=== PATIENT | male | born 1935 | race Hispanic/Latino ===

== ENCOUNTER 2017-05-24 09:57 | Emergency (ER) | payer MEDICARE ==
[~2017-05-24 09:57] MED LIST: BETA1TAB20 PO; BIOT25008 PO; LATA2.5D2 OP; METH2.5T6 PO; OMEG1CAP6 PO; THYR15TA PO
[2017-05-24 11:13] LABS: APPEARANCE,URINE Clear (CLEAR); BILIRUBIN,URINE Negative (NEGATIVE); COLOR,URINE Yellow (YELLOW); GLUCOSE, URINE (UA) Negative (NEGATIVE); KETONES,URINE Negative (NEGATIVE); LEUKOCYTE ESTERASE ,URINE Negative (NEGATIVE); NITRATE,URINE Negative (NEGATIVE); OCCULT BLOOD,URINE Negative (NEGATIVE); PROTEIN,URINE Negative (NEGATIVE); UROBILINOGEN,URINE 0.2 mg/dL (0.2-1.0)
[2017-05-24 11:20] LABS: BASOPHILS % (AUTO) 0.3 % (0.0-5.0); EOSINOPHILS % (AUTO) 0.1 % (0.0-8.0); HEMATOCRIT 38.3 % (42-54); LYMPHOCYTES % (AUTO) 8.1 % (21.0-51.0); MEAN CORPUSCULAR HEMOGLOBIN 29.1 pg (27.0-33.0); MEAN CORPUSCULAR HGB CONC 34.8 g/dL (32.0-36.0); MEAN CORPUSCULAR VOLUME 83.6 fL (79-99); MONOCYTES % (AUTO) 4.7 % (3.0-13.0); NEUTROPHILS % (AUTO) 86.8 % (40.0-77.0); NUCLEATED RED BLOOD CELLS 0.2 % (0.0-0.19); PLATELET COUNT (AUTO) 54 K/uL (130-400); RED BLOOD CELL COUNT(AUTO) 4.58 MIL/uL (4.50-6.20); RED CELL DISTRIBUTION WIDTH 16.4 % (11.0-15.5); WHITE BLOOD COUNT (AUTO) 3.2 K/uL (4.8-10.8)
[2017-05-24] MEDS ORDERED: SODIUM CHLORIDE 0.9% 1000ML 1,000 ML IV ONE (11:22)
[2017-05-24] MEDS ORDERED: ONDANSETRON HCL MDV 20ML 2 MG/ML VIAL ONE (11:23)
[2017-05-24 11:27] LABS: POTASSIUM 4.2 mmol/L (3.5-5.1)
[2017-05-24 11:33] LABS: ALBUMIN 3.4 g/dL (3.5-5.0); BILIRUBIN,DIRECT 0.2 mg/dL (0.0-0.3); BILIRUBIN,TOTAL 0.9 mg/dL (0.2-1.0); TOTAL PROTEIN, SERUM 6.4 g/dL (6.0-8.3)
[2017-05-24 11:49] LABS: INR 1.11 (0.85-1.15); PARTIAL THROMBOPLASTIN TIME 28.5 SEC (26.3-35.5); PROTHROMBIN TIME 11.6 SEC (9.6-11.6)
[2017-05-24 11:50] LABS: PLATELET MORPHOLOGY COMMENT DECREASED
== END 2017-05-24 12:50 | disposition home or self-care (01) ==
LOC: EDH 09:57
DX: K59.00 Constipation, unspecified (principal); R63.0 Anorexia; R79.1 Abnormal coagulation profile; Z85.118 Personal history of other malignant neoplasm of bronchus and lung; Z85.46 Personal history of malignant neoplasm of prostate; Z87.891 Personal history of nicotine dependence
CPT/HCPCS: 36415; 71045; 74176; 80048; 80076; 81003; 83690; 85025; 85610; 85730; 93005; 96360; 99285; J7030

== ENCOUNTER 2018-01-19 08:55 | Inpatient (IN) | payer MEDICARE ==
[~2018-01-19] VITALS: Ht 172.7 cm; Wt 71.0 kg
[2018-01-19 09:47] LABS: MONOCYTES % (AUTO) 12.8 % (3.0-13.0); NEUTROPHILS % (AUTO) 55.2 % (40.0-77.0)
[2018-01-19 09:55] LABS: CREATININE 1.2 mg/dL (0.5-1.5); POTASSIUM 3.8 mmol/L (3.5-5.1)
[2018-01-19 09:58] LABS: BASOPHILS % (AUTO) 0.2 % (0.0-5.0); HEMATOCRIT 30.5 % (42-54); LYMPHOCYTES % (AUTO) 31.8 % (21.0-51.0); MEAN CORPUSCULAR HEMOGLOBIN 29.4 pg (27.0-33.0); MEAN CORPUSCULAR HGB CONC 34.1 g/dL (32.0-36.0); MEAN CORPUSCULAR VOLUME 86.1 fL (79-99); NUCLEATED RED BLOOD CELLS 0.1 % (0.0-0.19); PLATELET COUNT (AUTO) 70 K/uL (130-400); RED BLOOD CELL COUNT(AUTO) 3.54 MIL/uL (4.50-6.20); RED CELL DISTRIBUTION WIDTH 21.1 % (11.0-15.5)
[2018-01-19 10:00] LABS: ALBUMIN 2.9 g/dL (3.5-5.0); BILIRUBIN,TOTAL 0.8 mg/dL (0.2-1.0); TOTAL PROTEIN, SERUM 5.4 g/dL (6.0-8.3); WHITE BLOOD COUNT (AUTO) 0.5 K/uL (4.8-10.8)
[2018-01-19 10:01] LABS: INR 1.11 (0.85-1.15); PARTIAL THROMBOPLASTIN TIME 33.8 SEC (26.3-35.5); PROTHROMBIN TIME 11.6 SEC (9.6-11.6)
[2018-01-19] MEDS ORDERED: MEROPENEM 1 GM VIAL ONE (10:16)
[2018-01-19] MEDS ORDERED: ACETAMINOPHEN 325 MG TAB ONE (10:16)
[2018-01-19 10:17] LABS: APPEARANCE,URINE Cloudy (CLEAR); BILIRUBIN,URINE Small (NEGATIVE); COLOR,URINE Dark Yellow (YELLOW); GLUCOSE, URINE (UA) Negative (NEGATIVE); KETONES,URINE Trace mg/dL (NEGATIVE); LEUKOCYTE ESTERASE ,URINE Trace (NEGATIVE); NITRATE,URINE Negative (NEGATIVE); OCCULT BLOOD,URINE Negative (NEGATIVE); PROTEIN,URINE POS 1+ (NEGATIVE)
[2018-01-19] MEDS ORDERED: SODIUM CHLORIDE 0.9% 50 ML IV ONE (10:17)
[2018-01-19 10:26] LABS: B-TYPE NATRIURETIC PEPTIDE 162 pg/mL (0-100)
[2018-01-19] MEDS ORDERED: VANCOMYCIN 1GM+NS 250ML 250 ML IV SCH (10:30)
[2018-01-19] MEDS ORDERED: SODIUM CHLORIDE 0.9% 1000ML 1,000 ML IV ONE (10:39)
[2018-01-19 10:51] LABS: BACTERIA,URINE Rare /HPF (None Seen); RBC,URINE None Seen /HPF (0-1); SQUAMOUS EPITHELIAL CELL,UR Rare /HPF (0-2); WBC,URINE 0-1 /HPF (0-1)
[2018-01-19] MEDS ORDERED: IPRATROPIUM/ALBUTEROL SULFATE 3 ML SOLUTION IH ONE (10:54)
[2018-01-19 11:11] LABS: BAND NEUTROPHILS % (MANUAL) 3 % (0-2); LYMPHOCYTES % (MANUAL) 29 % (22-44); MAN.DIFF COMMENT-IMPRESSION MANUAL DIFFERENTIAL; MONOCYTES % (MANUAL) 3 % (2-9); REACTIVE LYMPHOCYTES 22 % (0-0); SEGMENTED NEUTROPHILS % 43 % (40-70)
[2018-01-19 11:12] LABS: PLATELET MORPHOLOGY COMMENT DECREASED
[2018-01-19] MEDS ORDERED: VANCOMYCIN 1GM+NS 250ML 250 ML IV ONE (11:46)
[2018-01-19] MEDS ORDERED: METHYLPREDNISOLONE SOD SUCC 125MG/2ML VIAL ONE (12:24)
[2018-01-19] MEDS: ZOSYN 3.375GM+NS 50ML 50 ML IV SCH ×2 (12:30→21:28)
[2018-01-19] MEDS ORDERED: VANCOMYCIN PROTOCOL PER PHARMACY IV SCH (12:45)
[2018-01-19] MEDS ORDERED: SODIUM CHLORIDE 0.9% 10 ML VIAL IVP PRN (12:45)
[2018-01-19] MEDS ORDERED: ZOSYN 3.375GM+NS 50ML 50 ML IV ONE (14:32)
[2018-01-19] MEDS: TBO-FILGRASTIM 300 MCG/0.5 ML ML SQ SCH (15:06)
[2018-01-19 20:00] VITALS: BP 117/63
[2018-01-19] MEDS ORDERED: VALA500T38 PO (20:01)
[2018-01-19] MEDS ORDERED: POTA20TA82 PO (20:01)
[2018-01-19] MEDS ORDERED: ERYT1OIN7 OU (20:01)
[2018-01-19] MEDS ORDERED: BESI5DRO OU (20:01)
[2018-01-19] MEDS ORDERED: THYR60TA PO (20:01)
[2018-01-19] MEDS ORDERED: FURO20TA4 PO (20:01)
[2018-01-19] MEDS ORDERED: CYCL100C8 PO (20:01)
[2018-01-19] MEDS ORDERED: LEVO500T89 PO (20:01)
[2018-01-19] MEDS ORDERED: POSA100T PO (20:01)
[2018-01-19] MEDS ORDERED: METO25 PO (20:01)
[2018-01-19] MEDS: ERYTHROMYCIN BASE 0.5% OPHTH OINT 1 GM TUBE OU SCH (21:00)
[2018-01-19] MEDS: METOPROLOL TARTRATE 25 MG TAB PO SCH (21:00)
[2018-01-19] MEDS: FUROSEMIDE 20 MG TABLET PO SCH (21:00)
[2018-01-19] MEDS: POSACONAZOLE 300 MG PO SCH (21:00)
[2018-01-19] MEDS: BESIFLOXACIN HYDROCHLORIDE OU SCH (21:00)
[2018-01-20] VITALS (7 sets, daily range): BP systolic 100–135; BP diastolic 52–69
[2018-01-20] MEDS ORDERED: CYCL50CA3 PO (04:14)
[2018-01-20] MEDS: ZOSYN 3.375GM+NS 50ML 50 ML IV SCH ×3 (04:28→21:27)
[2018-01-20 05:19] LABS: HEMATOCRIT 29.5 % (42-54); MEAN CORPUSCULAR HEMOGLOBIN 28.7 pg (27.0-33.0); MEAN CORPUSCULAR HGB CONC 33.4 g/dL (32.0-36.0); NUCLEATED RED BLOOD CELLS 0.7 % (0.0-0.19); PLATELET COUNT (AUTO) 52 K/uL (130-400); RED BLOOD CELL COUNT(AUTO) 3.43 MIL/uL (4.50-6.20); RED CELL DISTRIBUTION WIDTH 22.3 % (11.0-15.5)
[2018-01-20 05:23] LABS: WHITE BLOOD COUNT (AUTO) 0.5 K/uL (4.8-10.8)
[2018-01-20 05:27] LABS: ALBUMIN 2.6 g/dL (3.5-5.0); BILIRUBIN,TOTAL 0.9 mg/dL (0.2-1.0); CREATININE 1.3 mg/dL (0.5-1.5); POTASSIUM 4.1 mmol/L (3.5-5.1)
[2018-01-20] MEDS: THYROID PORK 60 MG PO SCH (06:30)
[2018-01-20] MEDS: POSACONAZOLE 300 MG PO SCH ×2 (09:00→21:00)
[2018-01-20] MEDS: POTASSIUM CHLORIDE 20 MEQ ERTAB PO SCH (09:00)
[2018-01-20] MEDS: METOPROLOL TARTRATE 25 MG TAB PO SCH ×2 (09:00→21:27)
[2018-01-20] MEDS: VALACYCLOVIR HCL 500 MG TABLET PO SCH (09:00)
[2018-01-20] MEDS ORDERED: CYCLOSPORINE 100 MG PO SCH (09:00)
[2018-01-20] MEDS: BESIFLOXACIN HYDROCHLORIDE OU SCH ×4 (09:00→21:00)
[2018-01-20] MEDS: VANCOMYCIN 1GM+NS 250ML 250 ML IV SCH (09:32)
[2018-01-20] MEDS: FUROSEMIDE 20 MG TABLET PO SCH ×2 (09:33→21:00)
[2018-01-20] MEDS: METHYLPREDNISOLONE SOD SUCC 40MG/ML 1ML IVP SCH ×2 (09:33→21:27)
[2018-01-20] MEDS: LEVOFLOXACIN 500 MG TABLET PO SCH (09:33)
[2018-01-20] MEDS: TBO-FILGRASTIM 300 MCG/0.5 ML ML SQ SCH (09:35)
[2018-01-20] MEDS: CYCLOPHOSPHAMIDE 50 MG PO SCH (09:36)
[2018-01-20] MEDS ORDERED: FUROSEMIDE 10 MG/ML 2ML VIAL IV SCH ×2 (10:45→18:30)
[2018-01-20] MEDS ORDERED: FUROSEMIDE 10 MG/ML 2ML VIAL ONE (14:44)
[2018-01-20] MEDS: ERYTHROMYCIN BASE 0.5% OPHTH OINT 1 GM TUBE OU SCH (21:37)
[2018-01-21] MEDS: ZOSYN 3.375GM+NS 50ML 50 ML IV SCH ×3 (05:16→21:03)
[2018-01-21 05:49] LABS: BASOPHILS % (AUTO) 0.2 % (0.0-5.0); EOSINOPHILS % (AUTO) 0.2 % (0.0-8.0); HEMATOCRIT 29.4 % (42-54); LYMPHOCYTES % (AUTO) 8.4 % (21.0-51.0); MEAN CORPUSCULAR HGB CONC 33.4 g/dL (32.0-36.0); MEAN CORPUSCULAR VOLUME 86.9 fL (79-99); MONOCYTES % (AUTO) 32.2 % (3.0-13.0); NUCLEATED RED BLOOD CELLS 1.2 % (0.0-0.19); PLATELET COUNT (AUTO) 46 K/uL (130-400); RED BLOOD CELL COUNT(AUTO) 3.39 MIL/uL (4.50-6.20); RED CELL DISTRIBUTION WIDTH 21.5 % (11.0-15.5)
[2018-01-21 05:51] LABS: WHITE BLOOD COUNT (AUTO) 0.5 K/uL (4.8-10.8)
[2018-01-21 06:11] LABS: ALBUMIN 2.7 g/dL (3.5-5.0); BILIRUBIN,TOTAL 1.2 mg/dL (0.2-1.0); CREATININE 1.3 mg/dL (0.5-1.5); POTASSIUM 4.1 mmol/L (3.5-5.1); TOTAL PROTEIN, SERUM 5.1 g/dL (6.0-8.3)
[2018-01-21] MEDS: THYROID PORK 60 MG PO SCH (06:30)
[2018-01-21 08:29] VITALS: BP 129/59
[2018-01-21] MEDS: POSACONAZOLE 300 MG PO SCH ×2 (09:00→21:00)
[2018-01-21] MEDS: BESIFLOXACIN HYDROCHLORIDE OU SCH ×4 (09:00→21:00)
[2018-01-21] MEDS: VANCOMYCIN 1GM+NS 250ML 250 ML IV SCH (10:18)
[2018-01-21] MEDS: TBO-FILGRASTIM 300 MCG/0.5 ML ML SQ SCH (10:18)
[2018-01-21] MEDS: VALACYCLOVIR HCL 500 MG TABLET PO SCH (10:18)
[2018-01-21] MEDS: METHYLPREDNISOLONE SOD SUCC 40MG/ML 1ML IVP SCH ×2 (10:18→21:03)
[2018-01-21] MEDS: LEVOFLOXACIN 500 MG TABLET PO SCH (10:19)
[2018-01-21] MEDS: FUROSEMIDE 20 MG TABLET PO SCH ×2 (10:19→21:00)
[2018-01-21] MEDS: METOPROLOL TARTRATE 25 MG TAB PO SCH ×2 (10:19→21:03)
[2018-01-21] MEDS: POTASSIUM CHLORIDE 20 MEQ ERTAB PO SCH (10:20)
[2018-01-21] MEDS: CYCLOPHOSPHAMIDE 50 MG PO SCH (11:53)
[2018-01-21 11:57] VITALS: BP 120/60
[2018-01-21] MEDS ORDERED: PHARMACY COMMUNICATION MISC SCH (12:00)
[2018-01-21] MEDS: LOPERAMIDE HCL 2 MG CAP PO PRN (13:40)
[2018-01-21 17:06] VITALS: BP 113/64
[2018-01-21 19:22] VITALS: BP 120/61
[2018-01-21] MEDS: ERYTHROMYCIN BASE 0.5% OPHTH OINT 1 GM TUBE OU SCH (21:00)
[2018-01-21 23:00] VITALS: BP 112/55
[2018-01-22] MEDS: ZOSYN 3.375GM+NS 50ML 50 ML IV SCH ×3 (05:06→20:44)
[2018-01-22] MEDS: THYROID PORK 60 MG PO SCH (06:23)
[2018-01-22 08:40] VITALS: BP 126/50
[2018-01-22] MEDS ORDERED: PHARMACY COMMUNICATION MISC SCH (08:45)
[2018-01-22] MEDS ORDERED: COMPOUND PO MISCELLANEOUS 1 EACH MISC MISC PRN (09:00)
[2018-01-22] MEDS: POSACONAZOLE 300 MG PO SCH ×2 (09:00→20:46)
[2018-01-22] MEDS: BESIFLOXACIN HYDROCHLORIDE OU SCH ×3 (09:00→20:45)
[2018-01-22] MEDS: VANCOMYCIN 250MG/5ML ORAL SOLUTION 40ML PO SCH ×6 (10:36→20:45)
[2018-01-22] MEDS: METHYLPREDNISOLONE SOD SUCC 40MG/ML 1ML IVP SCH ×2 (10:36→20:44)
[2018-01-22] MEDS: METOPROLOL TARTRATE 25 MG TAB PO SCH ×2 (10:37→20:44)
[2018-01-22] MEDS: FUROSEMIDE 20 MG TABLET PO SCH ×2 (10:37→20:45)
[2018-01-22] MEDS: POTASSIUM CHLORIDE 20 MEQ ERTAB PO SCH (10:37)
[2018-01-22] MEDS: VALACYCLOVIR HCL 500 MG TABLET PO SCH (10:37)
[2018-01-22] MEDS: LEVOFLOXACIN 500 MG TABLET PO SCH (10:37)
[2018-01-22] MEDS: VANCOMYCIN 1GM+NS 250ML 250 ML IV SCH (10:38)
[2018-01-22 13:40] VITALS: BP 126/56
[2018-01-22 14:37] LABS: CREATININE 1.2 mg/dL (0.5-1.5); POTASSIUM 3.8 mmol/L (3.5-5.1)
[2018-01-22 17:04] VITALS: BP 127/60
[2018-01-22 19:05] VITALS: BP 136/60
[2018-01-22] MEDS: ERYTHROMYCIN BASE 0.5% OPHTH OINT 1 GM TUBE OU SCH (20:58)
[2018-01-22 23:07] VITALS: BP 132/89
[2018-01-23 03:19] VITALS: BP 138/61
[2018-01-23] MEDS: ZOSYN 3.375GM+NS 50ML 50 ML IV SCH ×3 (03:28→20:04)
[2018-01-23] MEDS: VANCOMYCIN 250MG/5ML ORAL SOLUTION 40ML PO SCH ×8 (03:28→20:08)
[2018-01-23 05:52] LABS: HEMATOCRIT 30.6 % (42-54); MEAN CORPUSCULAR HEMOGLOBIN 29.2 pg (27.0-33.0); MEAN CORPUSCULAR HGB CONC 33.2 g/dL (32.0-36.0); MEAN CORPUSCULAR VOLUME 88.1 fL (79-99); NUCLEATED RED BLOOD CELLS 0.4 % (0.0-0.19); PLATELET COUNT (AUTO) 85 K/uL (130-400); RED BLOOD CELL COUNT(AUTO) 3.47 MIL/uL (4.50-6.20); RED CELL DISTRIBUTION WIDTH 21.9 % (11.0-15.5)
[2018-01-23] MEDS: THYROID PORK 60 MG PO SCH (06:05)
[2018-01-23 06:31] LABS: ALBUMIN 2.8 g/dL (3.5-5.0); BILIRUBIN,TOTAL 1.1 mg/dL (0.2-1.0); CREATININE 1.1 mg/dL (0.5-1.5); MAGNESIUM 2.1 mg/dL (1.80-2.40); POTASSIUM 3.4 mmol/L (3.5-5.1)
[2018-01-23 07:00] VITALS: BP 133/61
[2018-01-23] MEDS: LEVOFLOXACIN 500 MG TABLET PO SCH (08:03)
[2018-01-23] MEDS: FUROSEMIDE 20 MG TABLET PO SCH ×2 (08:03→18:14)
[2018-01-23] MEDS: METOPROLOL TARTRATE 25 MG TAB PO SCH ×2 (08:03→20:04)
[2018-01-23] MEDS: POTASSIUM CHLORIDE 20 MEQ ERTAB PO SCH (08:03)
[2018-01-23] MEDS: METHYLPREDNISOLONE SOD SUCC 40MG/ML 1ML IVP SCH ×2 (08:03→20:04)
[2018-01-23] MEDS: BESIFLOXACIN HYDROCHLORIDE OU SCH ×4 (08:04→20:09)
[2018-01-23] MEDS: POSACONAZOLE 300 MG PO SCH ×2 (08:04→20:05)
[2018-01-23] MEDS: VANCOMYCIN 1GM+NS 250ML 250 ML IV SCH ×2 (10:31→21:43)
[2018-01-23] MEDS: VALACYCLOVIR HCL 500 MG TABLET PO SCH (10:31)
[2018-01-23 11:00] VITALS: BP 130/65
[2018-01-23 16:00] VITALS: BP 124/68
[2018-01-23 19:00] VITALS: BP 120/54
[2018-01-23] MEDS: LOPERAMIDE HCL 2 MG CAP PO PRN (20:04)
[2018-01-23] MEDS: ERYTHROMYCIN BASE 0.5% OPHTH OINT 1 GM TUBE OU SCH (20:09)
[2018-01-24] VITALS: BP 139/59
[2018-01-24] MEDS: ZOSYN 3.375GM+NS 50ML 50 ML IV SCH ×3 (03:42→20:39)
[2018-01-24] MEDS: VANCOMYCIN 250MG/5ML ORAL SOLUTION 40ML PO SCH ×8 (03:43→21:00)
[2018-01-24 04:00] VITALS: BP 136/54
[2018-01-24] MEDS: LOPERAMIDE HCL 2 MG CAP PO PRN (04:58)
[2018-01-24] MEDS: THYROID PORK 60 MG PO SCH (05:01)
[2018-01-24 07:00] VITALS: BP 119/62
[2018-01-24] MEDS: METOPROLOL TARTRATE 25 MG TAB PO SCH ×2 (07:49→20:39)
[2018-01-24] MEDS: POSACONAZOLE 300 MG PO SCH ×2 (07:50→20:58)
[2018-01-24] MEDS: BESIFLOXACIN HYDROCHLORIDE OU SCH ×4 (07:50→20:40)
[2018-01-24] MEDS: POTASSIUM CHLORIDE 20 MEQ ERTAB PO SCH (08:32)
[2018-01-24] MEDS: FUROSEMIDE 20 MG TABLET PO SCH ×2 (08:32→17:47)
[2018-01-24] MEDS: LEVOFLOXACIN 500 MG TABLET PO SCH (08:32)
[2018-01-24] MEDS: METHYLPREDNISOLONE SOD SUCC 40MG/ML 1ML IVP SCH ×2 (08:33→20:38)
[2018-01-24] MEDS: VALACYCLOVIR HCL 500 MG TABLET PO SCH (09:55)
[2018-01-24] MEDS: VANCOMYCIN 1GM+NS 250ML 250 ML IV SCH ×2 (09:56→20:58)
[2018-01-24 11:00] VITALS: BP 129/48
[2018-01-24] MEDS: TBO-FILGRASTIM 300 MCG/0.5 ML ML SQ SCH (13:33)
[2018-01-24 16:00] VITALS: BP 129/59
[2018-01-24 19:00] VITALS: BP 142/56
[2018-01-24] MEDS: ERYTHROMYCIN BASE 0.5% OPHTH OINT 1 GM TUBE OU SCH (20:40)
[2018-01-25] VITALS: BP 124/64
[2018-01-25] MEDS: VANCOMYCIN 250MG/5ML ORAL SOLUTION 40ML PO SCH ×2 (03:00)
[2018-01-25 04:00] VITALS: BP 130/79
[2018-01-25] MEDS: ZOSYN 3.375GM+NS 50ML 50 ML IV SCH (04:29)
[2018-01-25 05:01] LABS: HEMATOCRIT 30.8 % (42-54); MEAN CORPUSCULAR HEMOGLOBIN 29.4 pg (27.0-33.0); MEAN CORPUSCULAR HGB CONC 33.5 g/dL (32.0-36.0); NUCLEATED RED BLOOD CELLS 0.2 % (0.0-0.19); PLATELET COUNT (AUTO) 81 K/uL (130-400); RED CELL DISTRIBUTION WIDTH 21.7 % (11.0-15.5); WHITE BLOOD COUNT (AUTO) 3.1 K/uL (4.8-10.8)
[2018-01-25 05:17] LABS: CREATININE 1.1 mg/dL (0.5-1.5); MAGNESIUM 1.9 mg/dL (1.80-2.40)
[2018-01-25] MEDS: THYROID PORK 60 MG PO SCH (06:09)
[2018-01-25] MEDS: TBO-FILGRASTIM 300 MCG/0.5 ML ML SQ SCH (06:09)
[2018-01-25] MEDS ORDERED: POTASSIUM CHLORIDE 20 MEQ ERTAB PO SCH (06:45)
[2018-01-25 08:37] VITALS: BP 124/46
[2018-01-25] MEDS: BESIFLOXACIN HYDROCHLORIDE OU SCH (09:00)
[2018-01-25] MEDS: POSACONAZOLE 300 MG PO SCH (09:00)
[2018-01-25] MEDS: LEVOFLOXACIN 500 MG TABLET PO SCH (11:10)
[2018-01-25] MEDS: FUROSEMIDE 20 MG TABLET PO SCH (11:10)
[2018-01-25] MEDS: METOPROLOL TARTRATE 25 MG TAB PO SCH (11:12)
[2018-01-25] MEDS: VALACYCLOVIR HCL 500 MG TABLET PO SCH (11:12)
[2018-01-25] MEDS: POTASSIUM CHLORIDE 20 MEQ ERTAB PO SCH (11:12)
== END 2018-01-25 11:20 | disposition home or self-care (01) | DRG 871 ==
LOC: EDH 08:55 → OBSVTOIN 12:20 → EDHIP 12:20 → 3AH 18:20
PROVIDERS: ADMIT Internal Medicine; ATTEND Internal Medicine
PROC: 5A09357 Assistance with Respiratory Ventilation, Less than 24 Consecutive Hours, Continuous Positive Airway Pressure (ICD-10-PCS; principal; 2018-01-19)
PROC: 0HBRXZZ Excision of Toe Nail, External Approach (ICD-10-PCS; 2018-01-20)
DX: A41.9 Sepsis, unspecified organism (principal); D61.810 Antineoplastic chemotherapy induced pancytopenia; L02.611 Cutaneous abscess of right foot; M86.9 Osteomyelitis, unspecified; A04.72 Enterocolitis due to Clostridium difficile, not specified as recurrent; M86.671 Other chronic osteomyelitis, right ankle and foot; D69.59 Other secondary thrombocytopenia; E03.9 Hypothyroidism, unspecified; G47.33 Obstructive sleep apnea (adult) (pediatric); I11.0 Hypertensive heart disease with heart failure; I27.20 Pulmonary hypertension, unspecified; I48.2 Chronic atrial fibrillation; I49.3 Ventricular premature depolarization; I50.9 Heart failure, unspecified; K21.9 Gastro-esophageal reflux disease without esophagitis; K44.9 Diaphragmatic hernia without obstruction or gangrene; L60.0 Ingrowing nail; L97.519 Non-pressure chronic ulcer of other part of right foot with unspecified severity; T45.1X5A Adverse effect of antineoplastic and immunosuppressive drugs, initial encounter; R50.81 Fever presenting with conditions classified elsewhere; Z79.01 Long term (current) use of anticoagulants; Z91.19 Patient's noncompliance with other medical treatment and regimen; Z85.72 Personal history of non-Hodgkin lymphomas; Z85.118 Personal history of other malignant neoplasm of bronchus and lung; Z92.3 Personal history of irradiation; Y92.89 Other specified places as the place of occurrence of the external cause; Z82.49 Family history of ischemic heart disease and other diseases of the circulatory system
CPT/HCPCS: 36415; 71045; 73620; 73718; 78582; 80048; 80053; 80202; 81001; 83605; 83630; 83735; 83880; 85025; 85027; 85060; 85378; 85610; 85730; 87040; 87046; 87070; 87076; 87493; 87804; 93005; 93306; 93925; 93970; 94640; 94660; 99291; A4218; A9540; A9558; J1940; J2185; J2543; J2920; J2930; J3370; J7030

== ENCOUNTER → 2020-05-21 | Outpatient (CLI) | payer MEDICARE ==
[~2020-05-21] MED LIST changes: +BESI5DRO OU; -BETA1TAB20 PO; -BIOT25008 PO; +ERYT1OIN7 OU; +FURO20TA4 PO; -LATA2.5D2 OP; +LEVO500T89 PO; -METH2.5T6 PO; +METO25 PO; -OMEG1CAP6 PO; +POSA100T PO; +POTA20TA82 PO; -THYR15TA PO; +THYR60TA PO; +VALA500T42 PO
== END | disposition home or self-care (01) ==
LOC: SHCH 09:49
PROVIDERS: ATTEND Internal Medicine Cardiovascular Disease
DX: I73.9 Peripheral vascular disease, unspecified (principal)
CPT/HCPCS: 93925

== ENCOUNTER → 2023-03-25 | Outpatient (CLI) | payer MEDICARE ==
[~2023-03-25] MED LIST changes: +LEVO-70 PO; -LEVO500T89 PO; +POTA-202 PO; -POTA20TA82 PO
[2023-03-25 12:13] LABS: EOSINOPHILS # (AUTO) 0.01 K/uL (0.00-0.70); EOSINOPHILS % (AUTO) 0.4 % (0.0-8.0); HEMATOCRIT 36.2 % (42-54); IMMATURE GRANULOCYTE ABSOLUTE 0.02 K/uL (0-1); LYMPHOCYTES # (AUTO) 0.5 K/uL (1.0-4.8); LYMPHOCYTES % (AUTO) 20.6 % (21.0-51.0); MEAN CORPUSCULAR HEMOGLOBIN 27.7 pg (27.0-33.0); MEAN CORPUSCULAR HGB CONC 31.5 g/dL (32.0-36.0); MEAN CORPUSCULAR VOLUME 88.1 fL (79-99); MONOCYTES # (AUTO) 0.2 K/uL (0.1-1.0); NEUTROPHILS # (AUTO) 1.5 K/uL (1.8-7.7); NEUTROPHILS % (AUTO) 69.1 % (40.0-77.0); PLATELET COUNT (AUTO) 156 K/uL (130-400); RED BLOOD CELL COUNT(AUTO) 4.11 MIL/uL (4.50-6.20); RED CELL DISTRIBUTION WIDTH 15.6 % (11.0-15.5); WHITE BLOOD COUNT (AUTO) 2.2 K/uL (4.8-10.8)
[2023-03-25 12:37] LABS: CREATININE 0.9 mg/dL (0.5-1.5); POTASSIUM 4.7 mmol/L (3.5-5.1)
[2023-03-25 16:48] LABS: BAND NEUTROPHILS % (MANUAL) 13 % (0-2); LYMPHOCYTES % (MANUAL) 27 % (22-44); MAN.DIFF COMMENT-IMPRESSION MANUAL DIFFERENTIAL; MONOCYTES % (MANUAL) 6 % (2-9); PLATELET MORPHOLOGY COMMENT DECREASED; SEGMENTED NEUTROPHILS % 54 % (40-70); TOTAL CELLS COUNTED 100; WBC MORPHOLOGY CONSISTENT W/DIFF
== END | disposition home or self-care (01) ==
LOC: LAB 09:58
PROVIDERS: ATTEND Internal Medicine Cardiovascular Disease
DX: I48.0 Paroxysmal atrial fibrillation (principal)
CPT/HCPCS: 36415; 80048; 85025

== ENCOUNTER → 2024-01-10 | Outpatient (CLI) | payer OTHER ==
--- NOTE | 2024-01-10 16:08 | HMCIMG ---
CT HEART SAVER PROMOTIONAL HISTORY: Calcium scoring COMPARISON: None TECHNIQUE: Computed tomography of the heart was performed with ECG gating and suspended respiration. Postprocessing was performed on a computer workstation to obtain diastolic phase images, determine calcium score and provide a quantitative assessment of extent of disease. This CT included only the heart. HeartSaver score is 519.6. Please see cardiac calcium score report. The available CT chest images show no acute finding. CT was performed with one or more following dose reduction techniques: automated exposure control, adjustment of the mA and kv according to patient's size, or use of a iterative reconstruction technique.
== END | disposition home or self-care (01) ==
LOC: RAH 15:17
PROVIDERS: ATTEND Internal Medicine Cardiovascular Disease
DX: Z13.6 Encounter for screening for cardiovascular disorders (principal)
CPT/HCPCS: 75571

== ENCOUNTER → 2024-01-16 | Outpatient (CLI) | payer MEDICARE ==
--- NOTE | 2024-01-16 19:23 | HMCSR ---
APPROVED REPORT EXAM: Two-dimensional and M-mode echocardiogram with Doppler and color Doppler. INDICATION ICD: R06.00 Dyspnea 2D Dimensions RVDd4.1 cmLVEF(%)63.6 (>50%)LVED Vol(simp.)138.0 mL IVSd0.8 (0.7-1.1cm)FS(%)34 %LVES Vol(simp.)55.0 mL LVDd4.5 (3.8-5.6cm)LA (2D)3.8 (1.6-4.0cm)LVEF(%, simp.)60 % PWd0.9 (0.7-1.1cm)Ao Root(2D)3.2 (2.0-3.7cm) LVDs3.0 (2.5-4.0cm)LVOT diam2.0 (1.8-2.4cm) IVC diam1.9 cm Aortic Valve AoV Vmax1.6 m/Gab Peak GR9.7 mmHgLVOT Vmax1.4 m/s AoV VTI0.4 mAo Mean GR4.9 mmHgLVOT VTI0.30 m DEEDEE (VMAX)2.5 cm2AVA (VTI) 2.5 cm2 Mitral Valve MV E Smlt275.0 cm/sDECEL Eoka717 ms MV A Vmax76.4 cm/sP 1/2 T60 ms E/A ratio1.5MVA (PHT)3.6 cm2 MR Max PG68 mmHg TDI E/E' Medial9.0E/E' Gmcdoet97.0 Pulmonary Valve PV Vmax1.1 m/sPV VTI0.28 mPV Mean GR3 mmHg PV Peak GR5.2 mmHgPI End Annalee. Dickson 1.2 cm/s Tricuspid Valve TR Vmax3.3 m/sRAP (EST) 8 xrUzRHQK99.2 mmHg TR Peak GR43.2 mmHg Left Ventricle Left ventricular cavity size is normal. There is normal LV segmental wall motion. There is normal lef t ventricular wall thickness. LVEF is 60-65%. Indeterminate diastolic dysfunction. Right Ventricle The right ventricle is borderline to mildly dilated. The right ventricular systolic function is lisa l. Atria The left atrial size appears normal. The right atrium is mildly dilated. Aortic Valve Aortic valve is trileaflet. Aortic valve leaflets are sclerotic but open well. No aortic regurgitatio n is present. There is no aortic valvular stenosis. Mitral Valve Mitral valve leaflets are mildly sclerotic but open well. There is no mitral valve regurgitation note d. There is no mitral valve stenosis. Tricuspid Valve The tricuspid valve leaflets appear normal. There is mild to moderate tricuspid regurgitation. Right ventricular systolic pressure is estimated at 50-60 mmHg. Pulmonic Valve Pulmonic valve is not well visualized. There is trace pulmonic valvular regurgitation. Great Vessels The aortic root is normal in size. IVC is dilated and collapses >50% with inspiration. Pericardium No pericardial effusion. Other Information Quality : Technically Limited Technically limited study due to body habitus. Conclusion LVEF is 60-65%. There is mild to moderate tricuspid regurgitation. Right ventricular systolic pressure is estimated at 50-60 mmHg.
== END | disposition home or self-care (01) ==
LOC: SHCH 12:47
PROVIDERS: ATTEND Internal Medicine Cardiovascular Disease
DX: I08.3 Combined rheumatic disorders of mitral, aortic and tricuspid valves (principal); R06.00 Dyspnea, unspecified
CPT/HCPCS: 93306